=== PATIENT | female | born 1995 | race Two or more races ===

== ENCOUNTER 2023-11-14 14:11 | Outpatient (CLI) | payer OTHER ==
[~2023-11-14] VITALS: Ht 160 cm; Wt 59.9 kg
[2023-11-14 13:03] VITALS: BP 111/68; O2SAT 99
[2023-11-14] MEDS ORDERED: PRENATAL TABLE1 EAC1 PO (14:19)
[2023-11-14] MEDS ORDERED: CEFTRIAXONE SODIUM 1,000 MG VIAL IV SCH (14:30)
[2023-11-14] MEDS ORDERED: RINGERS SOLUTION,LACTATED 1,000 ML IV SCH (14:30)
[2023-11-14 15:18] LABS: HEMATOCRIT 33.8 % (36.0-45.00); MEAN CELL VOLUME 91.2 fL (80.00-100.00); MEAN CORPUSCULAR HEMOGLOBIN 32.5 pg (27.00-32.0); MEAN CORPUSCULAR HGB CONC 35.6 g/dl (32.0-36.0); PLATELET COUNT 322 K/uL (150-450); RED BLOOD COUNT 3.71 M/uL (4.00-6.00)
[2023-11-14 15:21] LABS: PH,URINE 6.5 (5.0-8.0); URINE APPEARANCE Clear; URINE BILIRRUBIN Negative (NEGATIVE); URINE BLOOD Small; URINE COLOR Yellow; URINE GLUCOSE Negative (NEGATIVE); URINE KETONE Trace (NEGATIVE); URINE LEUKOCYTE Moderate; URINE NITRATE Negative; URINE PROTEIN Negative (NEGATIVE); URINE UROBILINOGEN 0.2 E.U./dl
[2023-11-14 15:24] LABS: URINE BACTERIA 846.6 uL (0.0-1933); URINE EPITHELIAL CELLS 28.9 uL (0.0-38.8); URINE RBC 18.4 uL (0.0-20.8); URINE WBC 29.5 uL (0.0-23.2)
[2023-11-14 15:43] VITALS: BP 123/74; O2SAT 99
[2023-11-14 15:44] LABS: URINE CAST 0.15 uL (0.0-1.40)
[2023-11-14 15:51] LABS: ALBUMIN 3.3 gm/dL (3.4-5.0); BILIRUBIN TOTAL 0.56 mg/dL (0.3-1.2); CALCIUM 9.2 mg/dL (8.5-10.1); CREATININE SERUM 0.41 mg/dL (0.55-1.02); GFR 182.15; GLOBULINA 3.6 G/DL (2.4-3.5); POTASSIUM 3.91 mEq/L (3.5-5.1); TOTAL PROTEIN 6.9 gm/dL (6.4-8.2)
[2023-11-14 16:03] LABS: PARTIAL THROMBOPLASTIN TIME 25.9 SECONDS (22.0-34.0); PROTHROMBIN TIME 10.9 SECONDS (9.0-11.5)
[2023-11-14] MEDS ORDERED: CYCLOBENZAPRINE HCL 5 MG TABLET PO PRN (17:15)
[2023-11-14 19:43] VITALS: BP 116/71; O2SAT 98
[2023-11-14 23:16] VITALS: BP 118/67; O2SAT 99
[2023-11-15 07:45] VITALS: BP 108/67
== END 2023-11-15 10:11 | disposition home or self-care (01) ==
LOC: OBS/DEL 14:11 → LDR 14:11 → OBS/DEL 11-15 10:11 → LDR 11-15 10:11 → EDSTATUS 12-13 09:33
PROVIDERS: Obstetrics & Gynecology Gynecology; ATTEND Obstetrics & Gynecology
DX: O23.42 Unspecified infection of urinary tract in pregnancy, second trimester (principal); N39.0 Urinary tract infection, site not specified; Z3A.23 23 weeks gestation of pregnancy

== ENCOUNTER 2024-02-25 20:19 | Outpatient (CLI) | payer OTHER ==
[2024-02-25 17:59] VITALS: BP 133/77
[~2024-02-25 20:19] MED LIST: PRENATAL TABLE1 EAC1 PO
[2024-02-25 21:20] VITALS: BP 133/77
== END 2024-02-25 21:20 | disposition home or self-care (01) ==
LOC: OBS/DEL 20:19
PROVIDERS: ATTEND Obstetrics & Gynecology Maternal & Fetal Medicine
DX: O46.93 Antepartum hemorrhage, unspecified, third trimester (principal); O47.1 False labor at or after 37 completed weeks of gestation; Z3A.38 38 weeks gestation of pregnancy

== ENCOUNTER 2024-02-26 14:00 | Inpatient (IN) | payer OTHER ==
[~2024-02-26] VITALS: Ht 160 cm; Wt 68.9 kg
[2024-02-27 16:09] VITALS: BP 130/77
[2024-02-27] MEDS ORDERED: OXYTOCIN 20 UNITS/500ML RL PIGGYBAG IV ONE (17:53)
[2024-02-27] MEDS ORDERED: OXYTOCIN 500 ML IV ONE (18:00)
[2024-02-27] MEDS ORDERED: MORPHINE SULFATE 4 MG/ML CARTRIDGE IV PRN (18:00)
[2024-02-27 19:11] VITALS: BP 138/73
[2024-02-27 19:16] LABS: HEMATOCRIT 38.9 % (36.0-45.00); HEMOGLOBIN 13.2 g/dL (12.0-15.00); MEAN CELL VOLUME 91.5 fL (80.00-100.00); MEAN CORPUSCULAR HEMOGLOBIN 31.1 pg (27.00-32.0); PLATELET COUNT 375 K/uL (150-450); RED BLOOD COUNT 4.25 M/uL (4.00-6.00)
[2024-02-27 19:44] LABS: INR 0.94; PARTIAL THROMBOPLASTIN TIME 25.7 SECONDS (22.0-34.0); PROTHROMBIN TIME 10.3 SECONDS (9.0-11.5)
[2024-02-27 19:49] LABS: ALBUMIN 3.2 gm/dL (3.4-5.0); BILIRUBIN TOTAL 0.87 mg/dL (0.3-1.2); CALCIUM 9.4 mg/dL (8.5-10.1); CREATININE SERUM 0.59 mg/dL (0.55-1.02); GFR 119.68; GLOBULINA 3.8 G/DL (2.4-3.5); POTASSIUM 3.82 mEq/L (3.5-5.1)
[2024-02-27] MEDS ORDERED: RINGERS SOLUTION,LACTATED 1,000 ML IV SCH (20:00)
[2024-02-27] MEDS ORDERED: ERYTHROMYCIN BASE OPHT 1GM EACH TUBE OP ONE ×2 (20:37→23:00)
[2024-02-27] MEDS ORDERED: OXYTOCIN 20 UNITS/1000ML RL PIGGYBAG IV ONE (20:38)
[2024-02-27] MEDS ORDERED: LIDOCAINE HCL 1% 10ML VIAL ONE (20:38)
[2024-02-27] MEDS ORDERED: CHLORHEXIDINE GLUCONATE 120 ML BOTTLE TOP ONE (20:38)
[2024-02-27] MEDS ORDERED: DOCUSATE SODIUM 100MG CAP PO SCH (20:53)
[2024-02-27] MEDS ORDERED: OXYTOCIN 1,000 ML IV ONE (21:00)
[2024-02-27] MEDS ORDERED: IBUprofen 400 MG TABLET PO PRN (21:00)
[2024-02-27] MEDS ORDERED: CHLORHEXIDINE GLUCONATE 120 ML BOTTLE TOP SCH (21:00)
[2024-02-27] MEDS ORDERED: FentaNYL CITRATE/PF 50MCG/ML 2ML VIAL IJ ONE (22:45)
[2024-02-27] MEDS ORDERED: CEFAZOLIN SODIUM 1,000 MG VIAL IV ONE (23:00)
[2024-02-27] MEDS ORDERED: LIDOCAINE HCL 1% 10ML VIAL IJ ONE (23:00)
[2024-02-27 23:01] VITALS: BP 133/67
[2024-02-27 23:03] VITALS: BP 130/94
[2024-02-27 23:15] VITALS: BP 130/65
[2024-02-27 23:29] VITALS: BP 133/67; O2SAT 100
[2024-02-28 03:27] VITALS: BP 135/60
[2024-02-28 07:01] LABS: HEMATOCRIT 30.5 % (36.0-45.00); MEAN CELL VOLUME 89.7 fL (80.00-100.00); MEAN CORPUSCULAR HEMOGLOBIN 32.3 pg (27.00-32.0); PLATELET COUNT 372 K/uL (150-450); RED CELL DISTRIBUTION WIDTH 13.1 % (11.5-14.5)
[2024-02-28 07:55] VITALS: BP 122/64
[2024-02-28] MEDS ORDERED: PNV,CALCIUM 72/IRON/FOLIC ACID 1 TAB TABLET PO SCH (09:00)
[2024-02-28 11:04] VITALS: BP 112/75; O2SAT 98
[2024-02-28 15:32] VITALS: BP 106/71
[2024-02-28 16:00] VITALS: BP 114/73
[2024-02-29 00:23] VITALS: BP 118/70
[2024-02-29 08:00] VITALS: BP 114/57
== END 2024-02-29 17:06 | disposition home or self-care (01) | DRG 768 ==
LOC: LDR 02-27 17:52 → OB/GYN 02-28 14:29 → LDR 03-06 14:00
PROVIDERS: ADMIT Obstetrics & Gynecology Gynecology; ATTEND Obstetrics & Gynecology Gynecology
PROC: 10D07Z6 Extraction of Products of Conception, Vacuum, Via Natural or Artificial Opening (ICD-10-PCS; principal; 2024-02-27)
PROC: 0DQR0ZZ Repair Anal Sphincter, Open Approach (ICD-10-PCS; 2024-02-27)
PROC: 0UQG7ZZ Repair Vagina, Via Natural or Artificial Opening (ICD-10-PCS; 2024-02-27)
PROC: 4A1HXCZ Monitoring of Products of Conception, Cardiac Rate, External Approach (ICD-10-PCS; 2024-02-27)
DX: O70.22 Third degree perineal laceration during delivery, IIIb (principal); O70.21 Third degree perineal laceration during delivery, IIIa; O75.81 Maternal exhaustion complicating labor and delivery; O66.5 Attempted application of vacuum extractor and forceps; Z37.0 Single live birth; Z3A.38 38 weeks gestation of pregnancy